=== PATIENT | male | born 1945 | race Caucasian/White ===

== ENCOUNTER 2020-12-05 17:22 | Inpatient (IN) | payer OTHER ==
[2020-12-05 23:43] VITALS: BMI 28.2
[2020-12-06] MEDS ORDERED: MAGNESIUM HYDROX 2400MG/30ML ORAL SUSPENSION 30 ML CUP PO PRN (00:21)
[2020-12-06] MEDS ORDERED: ONDANSETRON *ODT* 4 MG TABLET SL PRN (00:21)
[2020-12-06] MEDS ORDERED: METHADONE HCL 10 MG TABLET (FOR DETOX USE ONLY) PO ONE (00:21)
[2020-12-06] MEDS ORDERED: MAG HYDROX/AL HYDROX/SIMETH 30 ML UNIT-DOSE CUP PO PRN (00:21)
[2020-12-06] MEDS ORDERED: BISMUTH SUBSALICYLATE 524 MG/30 ML UD PO PRN (00:21)
[2020-12-06] MEDS ORDERED: cloNIDine HCL 0.1 MG TABLET PO PRN (00:21)
[2020-12-06] MEDS ORDERED: MAGNESIUM CITRATE 300 ML BOTTLE PO PRN (00:21)
[2020-12-06] MEDS ORDERED: MENTHOL/PHENOL 1 EACH UD MM PRN (00:21)
[2020-12-06] MEDS ORDERED: ACETAMINOPHEN 325 MG TABLET (FP) PO PRN ×2 (00:21)
[2020-12-06] MEDS ORDERED: IBUPROFEN 400 MG TABLET (FP) PO PRN (00:21)
[2020-12-06] MEDS ORDERED: METHADONE HCL 10 MG TABLET (FOR DETOX USE ONLY) ONE (01:57)
[2020-12-06] MEDS: PRENATAL VITAMINS W/ FOLIC ACID TABLET (FP) PO SCH (10:41)
[2020-12-06] MEDS ORDERED: TAMSULOSIN HCL 0.4 MG CAP PO SCH (22:00)
[2020-12-06] MEDS: MELATONIN 5 MG TABLETS PO SCH (22:40)
[2020-12-06] MEDS: THIAMINE HCL 100 MG TABLET (FP) PO SCH (22:41)
[2020-12-06] MEDS: QUEtiapine FUMARATE 25 MG TABLET PO SCH (22:41)
[2020-12-07] MEDS: sitaGLIPtin PHOSPHATE 50 MG TABLET PO SCH (07:36)
[2020-12-07] MEDS ORDERED: TAMSULOSIN HCL 0.4 MG CAP PO SCH (08:30)
[2020-12-07] MEDS ORDERED: METHADONE HCL 10 MG TABLET (FOR DETOX USE ONLY) ONE (09:12)
[2020-12-07] MEDS ORDERED: METHADONE HCL 5 MG TABLET (FOR DETOX USE ONLY) ONE (09:12)
[2020-12-07] MEDS ORDERED: METHADONE (DETOX) 20 MG, METHADONE (DETOX) 5 MG PO ONE (10:00)
[2020-12-07] MEDS: TAMSULOSIN HCL 0.4 MG CAP PO SCH (10:26)
[2020-12-07] MEDS: PRENATAL VITAMINS W/ FOLIC ACID TABLET (FP) PO SCH (10:26)
[2020-12-07] MEDS: LISINOPRIL 20 MG TABLET PO SCH (10:26)
[2020-12-07] MEDS: METHOCARBAMOL 500 MG TABLET PO PRN ×2 (10:26→21:47)
[2020-12-07] MEDS: ATORVASTATIN CA 20 MG TABLET (FP) PO SCH (10:27)
[2020-12-07] MEDS: PANTOPRAZOLE 40 MG TABLET PO SCH (10:27)
[2020-12-07] MEDS: FENOFIBRIC ACID 135 MG CAP PO SCH (10:27)
[2020-12-07 11:20] LABS: HEMATOCRIT 35.5 % (35.4-49); HEMOGLOBIN 11.9 GM/dL (11.7-16.9); MCH 32.4 pg (25.7-33.7); MCHC 33.6 g/dl (32.0-35.9); MEAN CELL VOLUME 96.3 fl (80-96); MEAN PLT VOLUME 10.9 fl (7.5-11.1); PLATELET COUNT 103 K/MM3 (134-434); RBC 3.68 M/mm3 (4.00-5.60); RDW 12.5 % (11.9-15.9); WHITE BLOOD COUNT 3.3 K/mm3 (4.0-10.0)
[2020-12-07 11:26] LABS: POTASSIUM 4.4 mmol/L (3.5-5.1)
[2020-12-07 11:27] LABS: CALCIUM 9.4 mg/dL (8.5-10.1)
[2020-12-07 11:28] LABS: ALBUMIN 3.4 g/dl (3.4-5.0); BLOOD UREA NITROGEN 27.4 mg/dL (7-18)
[2020-12-07 11:31] LABS: CREATININE 1.2 mg/dL (0.55-1.3)
[2020-12-07 11:33] LABS: BILIRUBIN,TOTAL 0.6 mg/dL (0.2-1); TOT PROT 6.8 g/dl (6.4-8.2)
[2020-12-07] MEDS: QUEtiapine FUMARATE 25 MG TABLET PO SCH (21:47)
[2020-12-07] MEDS: THIAMINE HCL 100 MG TABLET (FP) PO SCH (21:47)
[2020-12-07] MEDS: MELATONIN 5 MG TABLETS PO SCH (21:47)
[2020-12-08] MEDS: sitaGLIPtin PHOSPHATE 50 MG TABLET PO SCH (06:19)
[2020-12-08] MEDS: metFORMIN HCL 500 MG TABLET (FP) PO SCH ×2 (06:19→17:36)
[2020-12-08] MEDS ORDERED: METHADONE HCL 10 MG TABLET (FOR DETOX USE ONLY) PO ONE (10:00)
[2020-12-08] MEDS: ATORVASTATIN CA 20 MG TABLET (FP) PO SCH (10:20)
[2020-12-08] MEDS: PRENATAL VITAMINS W/ FOLIC ACID TABLET (FP) PO SCH (10:20)
[2020-12-08] MEDS: FENOFIBRIC ACID 135 MG CAP PO SCH (10:21)
[2020-12-08] MEDS: TAMSULOSIN HCL 0.4 MG CAP PO SCH (10:21)
[2020-12-08] MEDS: PANTOPRAZOLE 40 MG TABLET PO SCH (10:21)
[2020-12-08] MEDS: LISINOPRIL 20 MG TABLET PO SCH (10:22)
[2020-12-08] MEDS: QUEtiapine FUMARATE 25 MG TABLET PO SCH (22:07)
[2020-12-08] MEDS: MELATONIN 5 MG TABLETS PO SCH (22:07)
[2020-12-08] MEDS: THIAMINE HCL 100 MG TABLET (FP) PO SCH (22:07)
[2020-12-09] MEDS: metFORMIN HCL 500 MG TABLET (FP) PO SCH ×2 (06:09→16:45)
[2020-12-09] MEDS: sitaGLIPtin PHOSPHATE 50 MG TABLET PO SCH (06:10)
[2020-12-09] MEDS ORDERED: METHADONE HCL 5 MG TABLET (FOR DETOX USE ONLY) ONE (09:03)
[2020-12-09] MEDS ORDERED: METHADONE HCL 10 MG TABLET (FOR DETOX USE ONLY) ONE (09:04)
[2020-12-09] MEDS ORDERED: METHADONE (DETOX) 10 MG, METHADONE (DETOX) 5 MG PO ONE (10:00)
[2020-12-09] MEDS: LISINOPRIL 20 MG TABLET PO SCH (10:22)
[2020-12-09] MEDS: ATORVASTATIN CA 20 MG TABLET (FP) PO SCH (10:22)
[2020-12-09] MEDS: FENOFIBRIC ACID 135 MG CAP PO SCH (10:22)
[2020-12-09] MEDS: TAMSULOSIN HCL 0.4 MG CAP PO SCH (10:23)
[2020-12-09] MEDS: PANTOPRAZOLE 40 MG TABLET PO SCH (10:26)
[2020-12-09] MEDS: PRENATAL VITAMINS W/ FOLIC ACID TABLET (FP) PO SCH (10:26)
[2020-12-09] MEDS: QUEtiapine FUMARATE 25 MG TABLET PO SCH (22:17)
[2020-12-09] MEDS: THIAMINE HCL 100 MG TABLET (FP) PO SCH (22:17)
[2020-12-09] MEDS: MELATONIN 5 MG TABLETS PO SCH (22:17)
[2020-12-10] MEDS: metFORMIN HCL 500 MG TABLET (FP) PO SCH ×2 (06:12→16:37)
[2020-12-10] MEDS: sitaGLIPtin PHOSPHATE 50 MG TABLET PO SCH (06:13)
[2020-12-10] MEDS ORDERED: METHADONE HCL 10 MG TABLET (FOR DETOX USE ONLY) PO ONE (10:00)
[2020-12-10] MEDS: PRENATAL VITAMINS W/ FOLIC ACID TABLET (FP) PO SCH (10:09)
[2020-12-10] MEDS: ATORVASTATIN CA 20 MG TABLET (FP) PO SCH (10:09)
[2020-12-10] MEDS: PANTOPRAZOLE 40 MG TABLET PO SCH (10:10)
[2020-12-10] MEDS: FENOFIBRIC ACID 135 MG CAP PO SCH (10:10)
[2020-12-10] MEDS: LISINOPRIL 20 MG TABLET PO SCH (10:10)
[2020-12-10] MEDS: TAMSULOSIN HCL 0.4 MG CAP PO SCH (10:10)
[2020-12-10] MEDS: QUEtiapine FUMARATE 25 MG TABLET PO SCH (22:14)
[2020-12-10] MEDS: THIAMINE HCL 100 MG TABLET (FP) PO SCH (22:14)
[2020-12-10] MEDS: MELATONIN 5 MG TABLETS PO SCH (22:14)
[2020-12-10 23:15] VITALS: BP 122/65; PULSE 61; TEMP 97.3
[2020-12-11] MEDS ORDERED: METHADONE HCL 5 MG TABLET (FOR DETOX USE ONLY) PO ONE (06:00)
[2020-12-11] MEDS: sitaGLIPtin PHOSPHATE 50 MG TABLET PO SCH (08:01)
[2020-12-11] MEDS: metFORMIN HCL 500 MG TABLET (FP) PO SCH (08:01)
== END 2020-12-11 09:59 | disposition home or self-care (01) | DRG 897 ==
LOC: YASAS 17:22 → Y6N 12-06 12:47
PROVIDERS: ADMIT Allergy & Immunology; ATTEND Allergy & Immunology
PROC: HZ2ZZZZ Detoxification Services for Substance Abuse Treatment (ICD-10-PCS; principal; 2020-12-06)
DX: F11.23 Opioid dependence with withdrawal (principal); F19.282 Other psychoactive substance dependence with psychoactive substance-induced sleep disorder; F10.20 Alcohol dependence, uncomplicated; F19.24 Other psychoactive substance dependence with psychoactive substance-induced mood disorder; G47.00 Insomnia, unspecified; I10 Essential (primary) hypertension; E78.5 Hyperlipidemia, unspecified; E11.9 Type 2 diabetes mellitus without complications; Z79.84 Long term (current) use of oral hypoglycemic drugs; N40.0 Benign prostatic hyperplasia without lower urinary tract symptoms; Z87.891 Personal history of nicotine dependence
CPT/HCPCS: 36415; 80053; 82962; 85027; 86780; 93005; 93010; C9803; J0735; U0003